=== PATIENT | male | born 1990 | race American Indian/Alaskan Native ===

== ENCOUNTER 2016-04-04 09:36 | Emergency (ER) | payer SELFPAY ==
[2016-04-04 09:51] VITALS: BP 132/76
[2016-04-04] MEDS ORDERED: XYLOCAINE 1% MPF 5 mL INFILTRATI ONE (13:12)
[2016-04-04] MEDS ORDERED: ZITHROMAX PO ONE (13:12)
[2016-04-04] MEDS ORDERED: ROCEPHIN IM ONE (13:12)
--- NOTE | 2016-04-04 13:18 | Emergency Department Report ---
ED Male HPI - General Chief complaint: Urogenital-Male Stated complaint: POSS STD Time Seen by Provider: 04/04/16 13:01 Source: patient Mode of arrival: Ambulatory Limitations: No Limitations - History of Present Illness Initial comments: Patient complains of clear discharge from the penis 2 days. Denies dysuria, urgency, frequency, pain or swelling of the penis or scrotum, painful/painless genital rash, fever, chills, nausea, vomiting, diarrhea, headache, abdomen and flank pain, joint pain or swelling. Reports such activity with women only. Reports history of Chlamydia over a year ago. No other acute complaints today. - Related Data Previous Rx's Medication Instructions Recorded Last Taken Type traMADol [Ultram] 50 mg PO Q6HR PRN #12 tablet 12/15/14 Unknown Rx Allergies Allergy/AdvReac Type Severity Reaction Status Date / Time No Known Allergies Allergy Verified 12/15/14 00:24 ED Review of Systems ROS: Stated complaint: POSS STD Other details as noted in HPI Comment: All other systems reviewed and negative ED Past Medical Hx - Past Medical History Hx Psychiatric Treatment: Yes Hx Asthma: Yes Additional medical history: Bipolar disorder (diagnosed long time ago but incomplete workup), sinus problems - Social History Smoking Status: Never Smoker Substance Use Type: None - Medications Home Medications: Home Medications Medication Instructions Recorded Confirmed Last Taken Type traMADol [Ultram] 50 mg PO Q6HR PRN #12 tablet 12/15/14 Unknown Rx ED Physical Exam - General Limitations: No Limitations General appearance: alert, in no apparent distress - Head Head exam: Present: atraumatic, normocephalic - Eye Eye exam: Present: normal appearance, PERRL, EOMI. Absent: scleral icterus, conjunctival injection, periorbital swelling, periorbital tenderness - ENT ENT exam: Present: normal orophraynx - Neck Neck exam: Present: normal inspection, full ROM. Absent: tenderness, meningismus, lymphadenopathy - Respiratory Respiratory exam: Present: normal lung sounds bilaterally. Absent: respiratory distress, wheezes - Cardiovascular Cardiovascular Exam: Present: regular rate, normal rhythm - GI/Abdominal GI/Abdominal exam: Present: soft, normal bowel sounds. Absent: distended, tenderness, guarding, rebound, rigid, organomegaly - Extremities Exam Extremities exam: Present: normal inspection, full ROM, normal capillary refill. Absent: tenderness, pedal edema, joint swelling - Back Exam Back exam: Present: normal inspection, full ROM. Absent: CVA tenderness (R), CVA tenderness (L) - Neurological Exam Neurological exam: Present: alert, oriented X3, normal gait, reflexes normal. Absent: motor sensory deficit - Psychiatric Psychiatric exam: Present: normal affect, normal mood - Skin Skin exam: Present: warm, dry, intact, normal color. Absent: rash, cyanosis, diaphoretic, erythema, urticaria, vesicles, petechiae, pallor, abrasion, ecchymosis ED Course Vital Signs 04/04/16 09:48 Temperature 98.7 F Pulse Rate 80 Blood Pressure 132/76 O2 Sat by Pulse 100 Oximetry ED Medical Decision Making - Medical Decision Making 26 YOM with clear penile discharge and unremarkable UA. Results of GC/chlamydia pending. Patient empirically teated here in ED for GC/Chlamydia. He will be DC' d on patient education including follow up and safe play/sexual practices. He is instructed to follow up with his PCP for f/u of today's visit. Patient verbalized understanding and is agreeable to plan. Critical care attestation.: If time is entered above; I have spent that time in minutes in the direct care of this critically ill patient, excluding procedure time. ED Disposition Clinical Impression: Penile discharge Disposition: DISCHARGED TO HOME OR SELFCARE Is pt being admited?: No Does the pt Need Aspirin: No Condition: Stable Instructions: Nonspecific Urethritis in Men (ED), Safe Sex (ED) Referrals: [facility] [Outside] - 2-3 Days PRIMARY CARE,MD [Primary Care Provider] - 2-3 Days
[2016-04-04 13:59] LABS: Bilirubin,Urine NEG (Negative); Blood,Urine NEG (Negative); Ketones,Urine NEG (Negative); Leukocyte Esterase,Urine NEG (Negative); Mucus,Urine FEW /HPF; Nitrite,Urine NEG (Negative); Protein,Urine <15 mg/dL mg/dL (Negative); RBC,Urine < 1.0 /HPF (0.0-6.0)
== END 2016-04-04 14:15 | disposition home or self-care (01) ==
LOC: ED 09:36
DX: R36.9 Urethral discharge, unspecified (principal); J45.909 Unspecified asthma, uncomplicated; F31.9 Bipolar disorder, unspecified
CPT/HCPCS: 81001; 96372; 99282; J0696

== ENCOUNTER 2016-05-31 16:59 | Emergency (ER) | payer SELFPAY ==
[2016-05-31] MEDS ORDERED: MOTRIN PO ONE (19:56)
[2016-05-31] MEDS ORDERED: DELTASONE PO ONE (19:56)
--- NOTE | 2016-05-31 19:56 | Emergency Department Report ---
HPI - General Chief Complaint: Upper Respiratory Infection Time Seen by Provider: 05/31/16 19:48 - HPI HPI: Patient here complaining of fever, cough, body aches that started 2 days ago. He said he had nausea and vomiting yesterday and vomited twice but none today. He said he seems to be getting worse. Body aches at 9 out of 10. Denies any abdominal or back pain. Reports nasal congestion and feels like his ears are clogged. Patient able to tolerate oral liquids but he said his appetite is down. Denies any chest pain or difficulty breathing. Denies any sore throats. Denies any neck pain or stiffness. ED Past Medical Hx - Past Medical History Previous Medical History?: Yes Hx Psychiatric Treatment: Yes Hx Asthma: Yes Additional medical history: Bipolar disorder (diagnosed long time ago but incomplete workup), sinus problems - Surgical History Past Surgical History?: Yes Additional Surgical History: Appendix - Family History Family history: hypertension - Social History Smoking Status: Never Smoker Substance Use Type: None - Medications Home Medications: Home Medications Medication Instructions Recorded Confirmed Last Taken Type traMADol [Ultram] 50 mg PO Q6HR PRN #12 tablet 12/15/14 Unknown Rx Brompheniramine/Pseudoephed/Dm 5 ml PO Q8H PRN #150 syrup 05/31/16 Unknown Rx [Bromfed Dm Cough Syrup] Cetirizine HCl [ZyrTEC] 10 mg PO QDAY #14 capsule 05/31/16 Unknown Rx Fluticasone [Flonase] 1 spray NS QDAY #1 bottle 05/31/16 Unknown Rx Ibuprofen [Motrin] 600 mg PO Q6H PRN #20 tablet 05/31/16 Unknown Rx Promethazine [Phenergan TAB] 25 mg PO Q8HR PRN #12 tab 05/31/16 Unknown Rx ED Review of Systems ROS: Stated complaint: FLU SYMPTOMS Other details as noted in HPI Comment: All other systems reviewed and negative Constitutional: chills, fever Eyes: denies: eye pain, eye discharge ENT: congestion. denies: ear pain, throat pain Respiratory: cough. denies: shortness of breath, SOB with exertion, SOB at rest , stridor, wheezing Cardiovascular: denies: chest pain, palpitations, edema, syncope Gastrointestinal: nausea, vomiting. denies: diarrhea, constipation Musculoskeletal: myalgia. denies: back pain Skin: denies: rash Neurological: denies: headache, numbness, paresthesias, confusion, abnormal gait , vertigo Physical Exam - Physical Exam Vital Signs: Vital Signs 05/31/16 17:39 Temperature 100.0 F H Pulse Rate 91 H Respiratory 18 Rate Blood Pressure 119/76 O2 Sat by Pulse 98 Oximetry General: This is a 26-year-old male well-nourished well-developed nontoxic in appearance. Physical Exam: Head: Normocephalic atraumatic Mouth: Moist, no pharyngeal exudate or erythema. Uvula is midline and oral airway is patent. No facial swelling. No peritonsillar abscesses. Nose: Congested with erythema to mucosa. Clear Drainage. Maxillary and frontal sinuses nontender to palpate Neck: Supple, no C-spine tenderness, no tracheal deviation. Nontender to palpate. no adenopathy Ears: Bilateral TMs congested without erythema. Bilateral EAC without any redness swelling or drainage. Abdomen: Soft, nontender to palpate in all quadrants, normal bowel sounds in all quadrant and negative CVA tenderness bilaterally. Eyes: Bilateral pupils equal and reactive to light, bilateral EOM intact. Bilateral sclera and conjunctiva without injection. Normal accommodation. No Lungs: Clear to auscultate bilaterally no rhonchi wheezes or rales. Normal work of breathing . Patient with dry cough extremity; No CCE. +2 pulses. No neurovascular compromise Cardiovascular: S1-S2, regular rate rhythm. No murmurs. Skin: clean Dry and intact no rash no lesions Psych: Normal mood and behavior ED Course Vital Signs 05/31/16 17:39 Temperature 100.0 F H Pulse Rate 91 H Respiratory 18 Rate Blood Pressure 119/76 O2 Sat by Pulse 98 Oximetry - Reevaluation(s) Reevaluation #1: 05/31/16 20:51 Patient given Motrin 800 mg in emergency room for pain and fever. He is also given Deltasone 60 mg for cough. ED Medical Decision Making - Medical Decision Making ED course: I explained to patient that he has viral syndrome which is a viral upper respiratory tract infection with cough. I instructed them that he needs to rest and drink plenty of fluid and take Motrin every 6 hours around-the- clock for the next 48 hours to keep fever down. Patient was given Motrin 800 mg by mouth for fever and pain in the distal 6 mg by mouth for coughing and viral syndrome. He is able to tolerate oral fluids in emergency room. Patient stable and discharged home with prescription for Zyrtec, Flonase, Motrin and Bromfed-DM Critical care attestation.: If time is entered above; I have spent that time in minutes in the direct care of this critically ill patient, excluding procedure time. ED Disposition Clinical Impression: Viral upper respiratory tract infection with cough Nausea and vomiting Qualifiers: Vomiting type: unspecified Vomiting Intractability: non-intractable Qualified Code(s): R11.2 - Nausea with vomiting, unspecified Disposition: DISCHARGED TO HOME OR SELFCARE Is pt being admited?: No Does the pt Need Aspirin: No Condition: Stable Instructions: Acute Nausea and Vomiting (ED), Viral Syndrome (ED), Acute Cough (ED) Additional Instructions: Please increase her fluid intake to 2-3 L of fluid daily until better. Take Motrin as prescribed to keep temperature down. Please rest for 72 hours Prescriptions: Brompheniramine/Pseudoephed/Dm [Bromfed Dm Cough Syrup] 5 ml PO Q8H PRN #150 syrup PRN Reason: Cough Cetirizine HCl [ZyrTEC] 10 mg PO QDAY #14 capsule Fluticasone [Flonase] 1 spray NS QDAY #1 bottle Ibuprofen [Motrin] 600 mg PO Q6H PRN #20 tablet PRN Reason: Pain Promethazine [Phenergan TAB] 25 mg PO Q8HR PRN #12 tab PRN Reason: Nausea Referrals: PRIMARY CARE, [Primary Care Provider] - 2-3 Days [facility] [Outside] - 3-5 Days Forms: Work/School Release Form(ED)
[2016-05-31 21:10] VITALS: BP 110/72
== END 2016-05-31 21:11 | disposition home or self-care (01) ==
LOC: ED 16:59
DX: J06.9 Acute upper respiratory infection, unspecified (principal); R11.2 Nausea with vomiting, unspecified; J45.909 Unspecified asthma, uncomplicated; F31.9 Bipolar disorder, unspecified
CPT/HCPCS: 99282; J7512

== ENCOUNTER 2016-06-03 19:17 | Emergency (ER) | payer SELFPAY ==
[2016-06-03] MEDS ORDERED: TORADOL IM ONE (20:30)
[2016-06-03] MEDS ORDERED: LIDOCAINE VISCOUS 2% MM STA (20:30)
--- NOTE | 2016-06-03 20:55 | Emergency Department Report ---
ED General Adult HPI - General Chief complaint: Sore Throat Stated complaint: SORE THORAT Time Seen by Provider: 06/03/16 20:22 Source: patient Mode of arrival: Ambulatory Limitations: No Limitations - History of Present Illness Initial comments: PT c/o sore throat x 2 days. PT states he was seen in the ED for "virus" the day before his sore throat occurred. PT states he has taken his RXs but he still does not feel well. PT reports sore throat, fever and chills. MD Complaint: sore throat Onset/Timin -: Gradual, days(s) Radiation: non-radiation Severity scale (0 -10): 4 Quality: sharp, constant Consistency: constant Improves with: none Worsens with: eating, other (talking) Associated Symptoms: fever/chills, loss of appetite. denies: cough, nausea/ vomiting, shortness of breath Treatments Prior to Arrival: NSAID - Related Data Previous Rx's Medication Instructions Recorded Last Taken Type traMADol [Ultram] 50 mg PO Q6HR PRN #12 tablet 12/15/14 Unknown Rx Brompheniramine/Pseudoephed/Dm 5 ml PO Q8H PRN #150 syrup 05/31/16 Unknown Rx [Bromfed Dm Cough Syrup] Cetirizine HCl [ZyrTEC] 10 mg PO QDAY #14 capsule 05/31/16 Unknown Rx Fluticasone [Flonase] 1 spray NS QDAY #1 bottle 05/31/16 Unknown Rx Ibuprofen [Motrin] 600 mg PO Q6H PRN #20 tablet 05/31/16 Unknown Rx Promethazine [Phenergan TAB] 25 mg PO Q8HR PRN #12 tab 05/31/16 Unknown Rx Allergies Allergy/AdvReac Type Severity Reaction Status Date / Time No Known Allergies Allergy Verified 12/15/14 00:24 ED Review of Systems ROS: Stated complaint: SORE THORAT Other details as noted in HPI Comment: All other systems reviewed and negative Constitutional: chills, fever ENT: throat pain Respiratory: denies: cough Gastrointestinal: denies: nausea, vomiting Musculoskeletal: denies: back pain ED Past Medical Hx - Past Medical History Hx Psychiatric Treatment: Yes Hx Asthma: Yes Additional medical history: Bipolar disorder (diagnosed long time ago but incomplete workup), sinus problems - Surgical History Hx Appendectomy: Yes Additional Surgical History: Appendix - Social History Smoking Status: Never Smoker Substance Use Type: None - Medications Home Medications: Home Medications Medication Instructions Recorded Confirmed Last Taken Type traMADol [Ultram] 50 mg PO Q6HR PRN #12 tablet 12/15/14 Unknown Rx Brompheniramine/Pseudoephed/Dm 5 ml PO Q8H PRN #150 syrup 05/31/16 Unknown Rx [Bromfed Dm Cough Syrup] Cetirizine HCl [ZyrTEC] 10 mg PO QDAY #14 capsule 05/31/16 Unknown Rx Fluticasone [Flonase] 1 spray NS QDAY #1 bottle 05/31/16 Unknown Rx Ibuprofen [Motrin] 600 mg PO Q6H PRN #20 tablet 05/31/16 Unknown Rx Promethazine [Phenergan TAB] 25 mg PO Q8HR PRN #12 tab 05/31/16 Unknown Rx ED Physical Exam - General Limitations: No Limitations General appearance: alert, in no apparent distress - Head Head exam: Present: atraumatic, normocephalic - Eye Eye exam: Present: normal appearance. Absent: conjunctival injection, nystagmus - ENT ENT exam: Present: mucous membranes moist, TM's normal bilaterally, normal external ear exam - Expanded ENT Exam Expanded Mouth exam: Absent: drooling, trismus, muffled voice Throat exam: Positive: other (moderate amount of clear nasal drainage ). Negative: tonsillar erythema, tonsillomegaly - Neck Neck exam: Present: normal inspection, full ROM. Absent: tenderness, meningismus, lymphadenopathy - Respiratory Respiratory exam: Present: normal lung sounds bilaterally. Absent: respiratory distress - Cardiovascular Cardiovascular Exam: Present: regular rate, normal rhythm, normal heart sounds - Extremities Exam Extremities exam: Present: normal inspection, full ROM - Back Exam Back exam: Present: full ROM. Absent: tenderness - Neurological Exam Neurological exam: Present: alert, oriented X3, normal gait - Psychiatric Psychiatric exam: Present: normal affect, normal mood - Skin Skin exam: Present: warm, dry, intact ED Course Vital Signs 06/03/16 19:53 Temperature 98.2 F Pulse Rate 57 L Respiratory 18 Rate Blood Pressure 127/87 Blood Pressure 127/87 [Right] O2 Sat by Pulse 100 Oximetry - Reevaluation(s) Reevaluation #1: 06/03/16 21:47 PT states his throat is feeling better. PT aware of lab results. PT has no questions at this time. - Pulse Oximetry Interpretation Digit-Finger Initial Pulse Oximetry Readin Actions Taken: none ED Medical Decision Making - Differential Diagnosis viral uri, strep pharyngtitis Critical care attestation.: If time is entered above; I have spent that time in minutes in the direct care of this critically ill patient, excluding procedure time. ED Disposition Clinical Impression: Post-nasal drainage Pharyngitis Qualifiers: Pharyngitis/tonsillitis etiology: unspecified etiology Qualified Code(s): J02.9 - Acute pharyngitis, unspecified Disposition: DISCHARGED TO HOME OR SELFCARE Is pt being admited?: No Does the pt Need Aspirin: No Condition: Stable Instructions: Pharyngitis (ED), Viral Syndrome (ED) Additional Instructions: Rest Drink plenty of fluids Follow up with PCP in 2-3 days Referrals: PRIMARY CARE,MD [Primary Care Provider] - 3-5 Days Forms: Work/School Release Form(ED) Time of Disposition: 21:56
[2016-06-03 22:03] VITALS: BP 139/79
== END 2016-06-03 22:02 | disposition home or self-care (01) ==
LOC: ED 19:17
DX: J02.9 Acute pharyngitis, unspecified (principal); R09.82 Postnasal drip
CPT/HCPCS: 87116; 87400; 87430; 96372; 99282; J1885

== ENCOUNTER 2016-06-05 01:55 | Emergency (ER) | payer SELFPAY ==
[2016-06-05] MEDS ORDERED: MOTRIN PO ONE (07:31)
[2016-06-05] MEDS ORDERED: DECADRON IM ONE (07:31)
--- NOTE | 2016-06-05 07:32 | Emergency Department Report ---
ED ENT HPI - General Chief complaint: Sore Throat Stated complaint: DIFFICULTY SWALLOWING, NO APPETITE Time Seen by Provider: 06/05/16 07:31 Source: patient Mode of arrival: Ambulatory Limitations: No Limitations - History of Present Illness Initial comments: 26-year-old male past medical history asthma presents with complaint of one- week of sore throat, states eh feels slight foreign body sensation, states he was eating seafood 1 week ago. Denies fever, chills, states he has had some body aches. Speaking in full sentences, no stidor, no wheezing, audible, no drooling. Denies chest pain palpitations no abdominal pain no diarrhea. Denies any recent travel. MD complaint: sore throat Onset/Timin -: week(s) Location: throat Severity: moderate Severity scale (0 -10): 7 Quality: aching Consistency: constant Worsens with: swallowing Associated Symptoms: sore throat - Related Data Previous Rx's Medication Instructions Recorded Last Taken Type Brompheniramine/Pseudoephed/Dm 5 ml PO Q8H PRN #150 syrup 05/31/16 Unknown Rx [Bromfed Dm Cough Syrup] Cetirizine HCl [ZyrTEC] 10 mg PO QDAY #14 capsule 05/31/16 Unknown Rx Fluticasone [Flonase] 1 spray NS QDAY #1 bottle 05/31/16 Unknown Rx Ibuprofen [Motrin] 600 mg PO Q6H PRN #20 tablet 05/31/16 Unknown Rx traMADol [Ultram] 50 mg PO Q6HR PRN #12 tablet 06/03/16 Unknown Rx Amoxicillin [Trimox CAP] 500 mg PO Q8H #30 capsule 06/05/16 Unknown Rx Benzocaine/Menthol [Cepacol Sore 1 each MM Q4H PRN #18 lozenge 06/05/16 Unknown Rx Throat Lozenge] Loratadine [Claritin] 10 mg PO DAILY PRN #30 tablet 06/05/16 Unknown Rx Naproxen [Naprosyn TAB] 500 mg PO BID PRN #30 tablet 06/05/16 Unknown Rx Allergies Allergy/AdvReac Type Severity Reaction Status Date / Time No Known Allergies Allergy Verified 12/15/14 00:24 ED Dental HPI - General Chief complaint: Sore Throat Stated complaint: DIFFICULTY SWALLOWING, NO APPETITE Time Seen by Provider: 06/05/16 07:31 Source: patient Mode of arrival: Ambulatory Limitations: No Limitations - Related Data Previous Rx's Medication Instructions Recorded Last Taken Type Brompheniramine/Pseudoephed/Dm 5 ml PO Q8H PRN #150 syrup 05/31/16 Unknown Rx [Bromfed Dm Cough Syrup] Cetirizine HCl [ZyrTEC] 10 mg PO QDAY #14 capsule 05/31/16 Unknown Rx Fluticasone [Flonase] 1 spray NS QDAY #1 bottle 05/31/16 Unknown Rx Ibuprofen [Motrin] 600 mg PO Q6H PRN #20 tablet 05/31/16 Unknown Rx traMADol [Ultram] 50 mg PO Q6HR PRN #12 tablet 06/03/16 Unknown Rx Amoxicillin [Trimox CAP] 500 mg PO Q8H #30 capsule 06/05/16 Unknown Rx Benzocaine/Menthol [Cepacol Sore 1 each MM Q4H PRN #18 lozenge 06/05/16 Unknown Rx Throat Lozenge] Loratadine [Claritin] 10 mg PO DAILY PRN #30 tablet 06/05/16 Unknown Rx Naproxen [Naprosyn TAB] 500 mg PO BID PRN #30 tablet 06/05/16 Unknown Rx Allergies Allergy/AdvReac Type Severity Reaction Status Date / Time No Known Allergies Allergy Verified 12/15/14 00:24 ED Review of Systems ROS: Stated complaint: DIFFICULTY SWALLOWING, NO APPETITE Other details as noted in HPI Constitutional: denies: chills, fever Eyes: denies: eye pain, eye discharge, vision change ENT: throat pain. denies: ear pain Respiratory: denies: cough, shortness of breath, wheezing Cardiovascular: denies: chest pain, palpitations Endocrine: no symptoms reported Gastrointestinal: denies: abdominal pain, nausea, diarrhea Genitourinary: denies: urgency, dysuria Musculoskeletal: denies: back pain, joint swelling, arthralgia Skin: denies: rash, lesions Neurological: denies: headache, weakness, paresthesias Psychiatric: denies: anxiety, depression Hematological/Lymphatic: denies: easy bleeding, easy bruising ED Past Medical Hx - Past Medical History Previous Medical History?: Yes Hx Psychiatric Treatment: Yes Hx Asthma: Yes Additional medical history: Bipolar disorder (diagnosed long time ago but incomplete workup), sinus problems - Surgical History Hx Appendectomy: Yes Additional Surgical History: Appendix - Social History Smoking Status: Never Smoker Substance Use Type: None - Medications Home Medications: Home Medications Medication Instructions Recorded Confirmed Last Taken Type Brompheniramine/Pseudoephed/Dm 5 ml PO Q8H PRN #150 syrup 05/31/16 Unknown Rx [Bromfed Dm Cough Syrup] Cetirizine HCl [ZyrTEC] 10 mg PO QDAY #14 capsule 05/31/16 Unknown Rx Fluticasone [Flonase] 1 spray NS QDAY #1 bottle 05/31/16 Unknown Rx Ibuprofen [Motrin] 600 mg PO Q6H PRN #20 tablet 05/31/16 Unknown Rx traMADol [Ultram] 50 mg PO Q6HR PRN #12 tablet 06/03/16 Unknown Rx Amoxicillin [Trimox CAP] 500 mg PO Q8H #30 capsule 06/05/16 Unknown Rx Benzocaine/Menthol [Cepacol Sore 1 each MM Q4H PRN #18 lozenge 06/05/16 Unknown Rx Throat Lozenge] Loratadine [Claritin] 10 mg PO DAILY PRN #30 tablet 06/05/16 Unknown Rx Naproxen [Naprosyn TAB] 500 mg PO BID PRN #30 tablet 06/05/16 Unknown Rx ED Physical Exam - General Limitations: No Limitations General appearance: alert, in no apparent distress - Head Head exam: Present: atraumatic, normocephalic - Eye Eye exam: Present: normal appearance, PERRL, EOMI - ENT ENT exam: Present: mucous membranes moist - Expanded ENT Exam Expanded Mouth exam: Present: normal external inspection Teeth exam: Present: normal inspection Throat exam: Positive: tonsillar erythema (mild right-sided tonsillar erythema possible small area of exudates or tonsillar visible on exam, oropharynx is patent no uvular deviation no signs of peritonsillar abscess) - Neck Neck exam: Present: normal inspection, full ROM - Respiratory Respiratory exam: Present: normal lung sounds bilaterally. Absent: respiratory distress - Cardiovascular Cardiovascular Exam: Present: regular rate, normal rhythm. Absent: systolic murmur, diastolic murmur, rubs, gallop - GI/Abdominal GI/Abdominal exam: Present: soft, normal bowel sounds - Rectal Rectal exam: Present: deferred - Extremities Exam Extremities exam: Present: normal inspection - Back Exam Back exam: Present: normal inspection - Neurological Exam Neurological exam: Present: alert, oriented X3, CN II-XII intact, normal gait - Psychiatric Psychiatric exam: Present: normal affect, normal mood - Skin Skin exam: Present: warm, dry, intact, normal color. Absent: rash ED Course Vital Signs 06/05/16 07:07 Temperature 98.2 F Pulse Rate 59 L Respiratory 18 Rate Blood Pressure 124/88 O2 Sat by Pulse 100 Oximetry ED Medical Decision Making - Medical Decision Making A/P: Pharyngitis, sore throat 1-negative strep test but visible tonsillar erythema will scribe 7 day course of amoxicillin and refer patient to ENT patient has some visible tonsilliths but oropharynx patent no signs of angioedema no tongue swelling no signs of Pal's angina no cellulitis and floor of mouth area and there are no signs of acute allergic reaction 2-Aleve 500 twice a day when necessary 3-given 1 dose of Decadron for symptomatic relief and ED 4-throat lozenges for symptomatic relief 5-I also referred patient to primary care Critical care attestation.: If time is entered above; I have spent that time in minutes in the direct care of this critically ill patient, excluding procedure time. ED Disposition Clinical Impression: Throat discomfort Disposition: DISCHARGED TO HOME OR SELFCARE Is pt being admited?: No Does the pt Need Aspirin: No Condition: Stable Instructions: Tonsillitis (ED) Prescriptions: Amoxicillin [Trimox CAP] 500 mg PO Q8H #30 capsule Benzocaine/Menthol [Cepacol Sore Throat Lozenge] 1 each MM Q4H PRN #18 lozenge PRN Reason: Sore Throat Loratadine [Claritin] 10 mg PO DAILY PRN #30 tablet PRN Reason: Congestion Naproxen [Naprosyn TAB] 500 mg PO BID PRN #30 tablet PRN Reason: Sore Throat Referrals: [facility] [Provider Group] - 3-5 Days FRANCIS DE OLIVEIRA JR, MD [Staff Physician] - 3-5 Days Forms: Work/School Release Form(ED) Time of Disposition: 08:13
--- NOTE | 2016-06-05 08:00 | XRay Report ---
FINAL REPORT PROCEDURE: XR NECK SOFT TISSUE TECHNIQUE: Soft tissue neck radiographs, 2 views, including AP and lateral. CPT 82048 HISTORY: foreign body sensation ? fishbone COMPARISON: No prior studies are available for comparison. FINDINGS: Bone mineralization: Normal. Alignment: Normal. Soft tissues: Epiglottis and hypopharyngeal soft tissues normal. Foreign bodies: None. IMPRESSION: There is no demonstrated foreign body. The airway is midline and patent. Bony and soft tissue structures are normal.
[2016-06-05 08:42] VITALS: BP 121/82
== END 2016-06-05 08:40 | disposition home or self-care (01) ==
LOC: ED 01:55
DX: J32.9 Chronic sinusitis, unspecified (principal); J45.909 Unspecified asthma, uncomplicated; F31.9 Bipolar disorder, unspecified
CPT/HCPCS: 70360; 87116; 87430; 96372; 99283; J1100